=== PATIENT | male | born 1940 | race Caucasian/White ===

== ENCOUNTER 2023-06-22 06:53 | Day surgery (SDC) | payer MEDICARE ==
[2023-06-19 10:52] VITALS: BMI 25.7
[2023-06-22] MEDS ORDERED: Mupirocin 2% Ointment 22 GM Tube ONE (09:38)
[2023-06-22] MEDS ORDERED: Oxymetazoline HCl 0.05% ( 15 ML ) ONE (09:38)
[2023-06-22] MEDS ORDERED: EPINEPHrine 1 MG/ML VIAL ONE (09:38)
[2023-06-22] MEDS ORDERED: fentaNYL 50 mcg/mL 1 mL Vial ONE (09:41)
[2023-06-22] MEDS ORDERED: PROPOFOL 20 ML ONE (09:41)
[2023-06-22] MEDS ORDERED: Rocuronium Bromide 10 MG/ML (10ML VIAL) ONE (09:42)
[2023-06-22] MEDS ORDERED: Ondansetron PF 4 MG/2 ML Vial ONE (09:43)
[2023-06-22] MEDS ORDERED: Dexamethasone 4 mg/ml Vial ONE (09:43)
[2023-06-22] MEDS ORDERED: Lidocaine 1% PF 5 ML VIAL ONE (09:43)
[2023-06-22] MEDS ORDERED: SUGAMMADEX SODIUM 200 MG/2 ML VIAL ONE (09:44)
[2023-06-22] MEDS ORDERED: CEFAZOLIN 1 GM VIAL ONE (09:44)
[2023-06-22] MEDS ORDERED: ePHEDrine Sulfate 50 MG/10 ML VIAL ONE (10:06)
[2023-06-25 15:15] LABS: Fungus Stain Final report (.)
== END 2023-06-22 12:10 | disposition home or self-care (01) ==
LOC: CSHSDC 06:53
PROVIDERS: ATTEND Otolaryngology Plastic Surgery within the Head & Neck
PROC: 0JB40ZX Excision of Right Neck Subcutaneous Tissue and Fascia, Open Approach, Diagnostic (ICD-10-PCS; principal; 2023-06-22)
DX: C83.31 Diffuse large B-cell lymphoma, lymph nodes of head, face, and neck (principal); I10 Essential (primary) hypertension; J35.3 Hypertrophy of tonsils with hypertrophy of adenoids; Z79.899 Other long term (current) drug therapy; Z98.890 Other specified postprocedural states
CPT/HCPCS: 21550; 87070; 87075; 87102; 87205; 87206; J3010; 88184; 88307; 88331; 88341; 88342; 88360; 88365; 88377; J0171; J0690; J1100; J2405; J2704